=== PATIENT | female | born 1995 | race Caucasian/White ===

== ENCOUNTER → 2017-03-24 | Outpatient (CLI) | payer OTHER | LOC: LAB 16:03 | DX: Z02.1 Encounter for pre-employment examination (principal) | CPT/HCPCS: 86787 ==

== ENCOUNTER → 2021-02-09 | Outpatient (CLI) | payer OTHER | LOC: RAD 12:54 | DX: R07.9 Chest pain, unspecified (principal) | CPT/HCPCS: 71046 ==

== ENCOUNTER → 2021-03-09 | Outpatient (CLI) | payer OTHER | LOC: KOH-I 09:15 | DX: R55 Syncope and collapse (principal) | CPT/HCPCS: 70450 ==

== ENCOUNTER → 2021-03-12 | Outpatient (CLI) | payer OTHER | LOC: HEART 5 13:05 | DX: R55 Syncope and collapse (principal) ==

== ENCOUNTER → 2021-05-15 | Outpatient (CLI) | payer OTHER | LOC: HEART 5 14:30 | DX: R55 Syncope and collapse (principal) ==

== ENCOUNTER → 2021-06-04 | Outpatient (CLI) | payer OTHER | LOC: HEART 5 10:19 | DX: R55 Syncope and collapse (principal); I08.1 Rheumatic disorders of both mitral and tricuspid valves | CPT/HCPCS: 93306 ==